=== PATIENT | male | born 2000 | race Two or more races ===

== ENCOUNTER 2021-01-22 14:16 | Emergency (ER) | payer SELFPAY ==
[~2021-01-22] VITALS: Ht 167.6 cm; Wt 56.8 kg
[2021-01-22] MEDS ORDERED: VANCOMYCIN PER PHARMACY MC ONE (15:45)
[2021-01-22 16:15] VITALS: BP 133/62
--- NOTE | 2021-01-22 16:18 | PHYS DOC ---
General Adult EDM: Chief Complaint: INSECT BITE HPI: HPI: Patient is a 20 year old male who presents with today states that he was bit by something but does not know what it was on his left side of his ribs and then today when he awoke it was painful and burning and itching. He now has redness cellulitis covering the whole side of his rib cage that goes to the abdomen and slightly towards his back area. States yesterday he had a headache but never took his temperature. He states that he felt feverish. He denies any past medical history. He states he takes no medication and has not taken any medication for this. States he has never had any kind of surgeries. He rates his pain a 10 out of 10. He is [place]-speaking but his friend is in the room interpreting for him. Review of Systems: Review of Systems: Constitutional: + fever or chills. [] Eyes: Denies change in visual acuity. [] HENT: Denies nasal congestion or sore throat. [] Respiratory: Denies cough or shortness of breath. [] Cardiovascular: Denies chest pain or edema. [] GI: Denies abdominal pain, nausea, vomiting, bloody stools or diarrhea. [] : Denies dysuria. [] Musculoskeletal: Denies back pain or joint pain. + Left side pain [] Integument: Denies rash. + Insect bite [] Neurologic: Denies headache, focal weakness or sensory changes. [] Endocrine: Denies polyuria or polydipsia. [] Lymphatic: Denies swollen glands. [] Psychiatric: Denies depression or anxiety. [] Heart Score: C/O Chest Pain: No Risk Factors: Risk Factors: DM, Current or recent (<one month) smoker, HTN, HLP, family history of CAD, obesity. Risk Scores: Score 0 - 3: 2.5% MACE over next 6 weeks - Discharge Home Score 4 - 6: 20.3% MACE over next 6 weeks - Admit for Clinical Observation Score 7 - 10: 72.7% MACE over next 6 weeks - Early Invasive Strategies Current Medications: Current Medications Medications (Trade) Dose Ordered Sig/Donnie Start Time Stop Time Status Last Admin Dose Admin Ketorolac Tromethamine (Toradol 30mg Vial) 30 mg 1X ONCE 01/22/21 15:45 01/22/21 15:46 UNV Sodium Chloride 1,000 ml @ 1,000 mls/hr Q1H 01/22/21 15:45 01/22/21 16:44 UNV Vancomycin HCl (Vanco Per Pharmacy) 1 each 1X ONCE 01/22/21 15:45 01/22/21 15:46 UNV Physical Exam: PE: Constitutional: Well developed, well nourished, no acute distress, non-toxic appearance. [] HENT: Normocephalic, atraumatic, bilateral external ears normal, oropharynx moist, no oral exudates, nose normal. [] Eyes: PERRLA, EOMI, conjunctiva normal, no discharge. [] Neck: Normal range of motion, no tenderness, supple, no stridor. [] Cardiovascular:Heart rate regular rhythm, no murmur [] Lungs & Thorax: Bilateral breath sounds clear to auscultation [] Abdomen: Bowel sounds normal, soft, no tenderness, no masses, no pulsatile masses. [] Skin: Warm, dry, left side erythema, no rash. [] Back: No tenderness, no CVA tenderness. [] Extremities: No tenderness, no cyanosis, no clubbing, ROM intact, no edema. [] Neurologic: Alert and oriented X 3, normal motor function, normal sensory function, no focal deficits noted. [] Psychologic: Affect normal, judgement normal, mood normal. [] EKG: EKG: [] Radiology/Procedures: Radiology/Procedures: [] Course & Med Decision Making: Course & Med Decision Making Pertinent Labs and Imaging studies reviewed. (See chart for details) See HPI. Alert and oriented x4. Ambulatory with steady gait. Speaks in full c lear sentences. Patient is given IV vancomycin in the ED. He is afebrile. There is no drainable abscess. The looks to be a bug bite to the left rib cage side and there is associated redness and warmth that extends down his whole left side. No tenderness with palpation. Patient denies abdominal pain, nausea, vomiting, diarrhea, body aches, weakness. Blood work is unremarkable. Lactic acid is normal. He is nonseptic appearing. No signs of sepsis. Patient is given a liter of normal saline and IV van comycin. He will be discharged home on p.o. medication. He is to follow-up and 48 hours. Patient got 250ml of the Vancomycin before it was stopped due to the patient breaking out in red blotches head to toe and ithy. No angioedema or soa. I have ordered IV Benadryl, Pepcid and Solu-Medrol. [] Marion Disclaimer: Marion Disclaimer: This electronic medical record was generated, in whole or in part, using a voice recognition dictation system. Departure Departure Impression: Primary Impression: Cellulitis Qualified Codes: L03.319 - Cellulitis of trunk, unspecified Additional Impression: Vancomycin adverse reaction Qualified Codes: T36.8X5A - Adverse effect of other systemic antibiotics, initial encounter Disposition: HOME / SELF CARE / HOMELESS Condition: STABLE Referrals: NO PCP (PCP) Patient Instructions: Cellulitis, Drug Allergy Additional Instructions: Follow-up with primary care provider or return here in 48 hours for a follow-up. Take medication as prescribed and with food. Take ibuprofen or Tylenol for any kind of pain or fever. Scripts Methylprednisolone (MEDROL) 4 Mg Tab.ds.pk 1 PKG PO UD, #1 PKG Prov: JOLENE MENENDEZ APRN 01/22/21 Diphenhydramine Hcl (BENADRYL) 25 Mg Capsule 1 CAP PO BID for 5 Days, #10 CAP 0 Refills Prov: JOLENE MENENDEZ APRN 01/22/21 Clindamycin Hcl (CLINDAMYCIN HCL) 300 Mg Capsule 1 CAP PO TID for 10 Days, #30 CAP Prov: JOLENE MENENDEZ APRN 01/22/21 JOLENE MENENDEZ APRN Jan 22, 2021 16:17
[2021-01-22 16:33] LABS: BASO % 0 % (0-3); EOS # 0.3 x10^3/uL (0.0-0.7); EOS % 5 % (0-3); HEMOGLOBIN 16.1 g/dL (13.0-17.5); LYMPH # 0.8 x10^3/uL (1.0-4.8); LYMPH % 13 % (24-48); MEAN CORPUSCULAR HEMOGLOBIN 33 pg (25-35); MEAN CORPUSCULAR HGB CONC 34 g/dL (31-37); MEAN CORPUSCULAR VOLUME 95 fL (79-100); MONO # 0.6 x10^3/uL (0.0-1.1); MONO % 9 % (0-9); NEUT # 4.7 x10^3/uL (1.8-7.7); NEUT % 73 % (31-73); PLATELET COUNT 156 x10^3/uL (140-400); RED BLOOD COUNT 4.93 x10^6/uL (4.30-5.70); RED CELL DISTRIBUTION WIDTH 13.2 % (11.5-14.5); WHITE BLOOD COUNT 6.4 x10^3/uL (4.0-11.0)
[2021-01-22 16:41] LABS: CALCIUM 8.9 mg/dL (8.5-10.1); CREATININE 1.2 mg/dL (0.7-1.3); GFR 77.2; POTASSIUM 3.9 mmol/L (3.5-5.1)
[2021-01-22] MEDS ORDERED: KETOROLAC 30 MG/ML VIAL. IVP ONE (16:45)
[2021-01-22] MEDS ORDERED: IV NORMAL SALINE 1000ML BAG 1,000 ML IV SCH (16:45)
[2021-01-22 16:47] LABS: ALBUMIN 3.8 g/dL (3.4-5.0); ALBUMIN/GLOBULIN RATIO 1.1 (1.0-1.7); TOTAL BILIRUBIN 3.6 mg/dL (0.2-1.0); TOTAL PROTEIN 7.4 g/dL (6.4-8.2)
[2021-01-22] MEDS ORDERED: CLIN300C9 PO (16:59)
[2021-01-22] MEDS ORDERED: VANCOMYCIN 1.5 GM in IV NORMAL SALINE 500ML BAG 500 ML IV ONE (17:00)
[2021-01-22] MEDS ORDERED: FAMOTIDINE 20 MG/2 ML VIAL IVP ONE (18:00)
[2021-01-22] MEDS ORDERED: methylPREDNISolone SOD SUCC PF 125 MG/2 ML VIAL. IV ONE (18:00)
[2021-01-22] MEDS ORDERED: diphenhydrAMINE 50 MG/ML VIAL IVP ONE (18:00)
[2021-01-22] MEDS ORDERED: METH4TAB2 PO (18:01)
[2021-01-22] MEDS ORDERED: DIPH25CA58 PO (18:01)
== END 2021-01-22 19:30 | disposition home or self-care (01) ==
LOC: ER 14:16
DX: L03.319 Cellulitis of trunk, unspecified (principal); T36.8X5A Adverse effect of other systemic antibiotics, initial encounter; R51.9 Headache, unspecified; R07.81 Pleurodynia; R50.9 Fever, unspecified; Y92.89 Other specified places as the place of occurrence of the external cause
CPT/HCPCS: 36415; 80053; 83605; 85025; 87040; 96365; 96375; 99284; J1200; J1885; J2930; J3370; J3490; J7030; J7040

== ENCOUNTER 2021-10-16 09:54 | Emergency (ER) | payer SELFPAY ==
[~2021-10-16] VITALS: Ht 162.6 cm; Wt 55.8 kg
[~2021-10-16 09:54] MED LIST: CLIN-94 PO; DIPH25CA58 PO; METH4TAB2 PO
[2021-10-16 10:05] VITALS: BP 127/69
[2021-10-16] MEDS ORDERED: IBUPROFEN 200 MG TABLET. PO ONE (10:30)
--- NOTE | 2021-10-16 10:53 | PHYS DOC ---
Past Medical History Past Medical History: No Pertinent History Past Surgical History: No Surgical History Smoking Status: Current Some Day Smoker Additional Information: 3 cigarettes almost daily Alcohol Use: None Drug Use: None General Adult EDM: Chief Complaint: SORE THROAT HPI: HPI: Patient is a 21 year old male who presents with 3-day history of sore throat, nasal congestion, headache, cough and subjective fever. Patient rates his headache 10/10 and his sore throat as mild pain. Patient was vaccinated against COVID-19 but has not received a flu shot this season. He has taken Tylenol since symptom onset without significant relief. Patient denies chills, g eneralized fatigue, sputum production, shortness of breath. Review of Systems: Review of Systems: Constitutional: See HPI Eyes: Denies change in visual acuity, visual field deficits or discharge HENT: See HPI Respiratory: See HPI Cardiovascular: Denies chest pain, palpitations or edema GI: Denies abdominal pain, nausea, vomiting, bloody stools or diarrhea : Denies dysuria or hematuria Musculoskeletal: Denies back pain or joint pain Integument: Denies rash or other skin lesion Neurologic: Denies focal weakness or sensory changes Heart Score: C/O Chest Pain: No Current Medications: Current Medications Medications (Trade) Dose Ordered Sig/Donnie Start Time Stop Time Status Last Admin Dose Admin Guaifenesin (Mucinex) 600 mg 1X ONCE 10/16/21 10:30 10/16/21 10:31 DC 10/16/21 10:41 600 MG Ibuprofen (Motrin) 600 mg 1X ONCE 10/16/21 10:30 10/16/21 10:31 DC 10/16/21 10:40 600 MG Allergies: Allergies: Allergies Coded Allergies Type Severity Reaction Last Updated Verified No Known Drug Allergies 10/16/21 No Physical Exam: PE: Constitutional: Well developed, well nourished, no acute distress, non-toxic appearance. HENT: Normocephalic, atraumatic, bilateral external ears normal, oropharynx moist, no oral exudates, nose normal. Eyes: EOMI, conjunctiva normal, no discharge. Neck: Normal range of motion, no tenderness, supple, no stridor. Skin: Warm, dry, no erythema, no rash. Extremities: No cyanosis, no clubbing, ROM intact, no edema. Neurologic: Alert and oriented x4, normal motor function, normal sensory function, steady and symmetrical upright gait, no focal deficits noted. Current Patient Data: Labs: Laboratory Tests Test 10/16/21 10:22 Influenza Type A Antigen Positive (NEGATIVE) Influenza Type B Antigen Negative (NEGATIVE) SARS-CoV-2 Antigen (Rapid) Negative (NEGATIVE) Vital Signs: Vital Signs Date Time Temp Pulse Resp B/P (MAP) Pulse Ox O2 Delivery O2 Flow Rate FiO2 10/16/21 10:05 98.7 96 18 127/69 (88) 96 Room Air 98.7 Course & Med Decision Making: Course & Med Decision Making Pertinent Labs and Imaging studies reviewed. (See chart for details) Dragon Disclaimer: DragCasualing Disclaimer: This electronic medical record was generated, in whole or in part, using a voice recognition dictation system. Departure Departure Impression: Primary Impression: Influenza A Disposition: 01 HOME / SELF CARE / HOMELESS Condition: STABLE Referrals: NO PCP (PCP) Patient Instructions: Influenza, Adult, [id number] Additional Instructions: Siga las siguientes medidas de tratamiento de apoyo: - Humidificador de vapor fro con agua corriente al lado de la cama mientras duerme - Mucinex (guaifenesina) segn instrucciones de la caja - Tessalon perles (benzonatato) para la tos, especialmente por la noche antes de acostarse - Alternar ibuprofeno y paracetamol cada cuatro horas para tomy corporales/fiebre/dolor de jeremy INSTRUCCIONES GENERALES DE MARIA ESTHER DEL DEPARTAMENTO DE EMERGENCIA Keith por venir jasiel al Departamento de Emergencias (ED) de [facility] y confiarnos cordero atencin. Confiamos en que haya tenido mildred experiencia positiva en nuestro Departamento de Emergencias. Si desea hablar con la gerencia del departamento, puede llamar al director al . TREMAYNE INSTRUCCIONES DE SEGUIMIENTO SON LAS SIGUIENTES: 1. Idalmis un seguimiento con cordero mdico de atencin primaria. Si no tiene un mdico de cabecera, solicite mildred lista de recursos de mdicos o clnicas que puedan ayudarlo con la atencin de seguimiento. 2. El proveedor de emergencia xiao interpretado tremayne estudios de imgenes, si se ordenaron. El especialista en imgenes de radiologa tambin los ozzy. Si hay un cambio en los hallazgos, se le notificar en 48 horas cuando sea posible. 3. Si se xiao realizado mildred prueba de laboratorio o un cultivo, se revisarn tremayne resultados y se le notificar si necesita un cambio en el tratamiento. 4. Siga las instrucciones verbalizadas y consulte las copias impresas si es necesario. INSTRUCCIONES E INFORMACIN ADICIONALES: 1. Cordero atencin hoy xiao sido supervisada por un mdico especialmente capacitado en atencin de emergencia. Muchos problemas requieren ms de mildred evaluacin para un diagnstico y tratamiento completos. Le recomendamos que programe cordero lisa de seguimiento segn lo recomendado para garantizar el tratamiento completo de cordero enfermedad o lesin. Si no puede obtener atencin de seguimiento y contina teniendo un problema, o si cordero condicin empeora, le recomendamos que regrese al servicio de urgencias. 2. No podemos determinar de manera cao cordero condicin por telfono ni podemos kerline consejos mdicos slidos por telfono. Por estas razones de seguridad, si llama para pedir consejo mdico, le pediremos que vaya al servicio de urgencias para mildred evaluacin adicional. 3. Si tiene alguna pregunta sobre estas instrucciones de maria esther, llame al ED al . INFORMACIN DE SEGURIDAD: En inters de la seguridad, el bienestar y la prevencin de lesiones; le recomendamos que use cordero cinturn de seguridad, si fuma; bastante fumador, y alentamos a la fawn a usar un adam protector para andar en bicicleta y otros eventos deportivos que presenten un mayor riesgo de lesiones en la jeremy. SI TREMAYNE SNTOMAS EMPEORAN O SE DESARROLLAN NUEVOS SNTOMAS, O SI TIENE PREOCUPACIONES SOBRE CORDERO CONDICIN; O SI CORDERO CONDICIN EMPEORA MIENTRAS ESPERA CORDERO LISA DE SEGUIMIENTO; PNGASE EN CONTACTO CON CORDERO MDICO DE ATENCIN PRIMARIA, EL MDICO CUYO NOMBRE Y NMERO LE DIERON, O REGRESE AL ED INMEDIATAMENTE. Scripts Guaifenesin (GUAIFENESIN) 400 Mg Tablet 1 TAB PO TID for cough, #20 TAB 0 Refills Prov: SHELBY ELLIS 10/16/21 Benzonatate (BENZONATATE) 100 Mg Capsule 1-2 CAP PO HS, #20 CAP Prov: SHELBY ELLIS 10/16/21 SHELBY ELLIS Oct 16, 2021 10:53
[2021-10-16 10:56] LABS: INFLUENZA B PATIENT NEGATIVE (NEGATIVE)
[2021-10-16 11:05] LABS: INFLUENZA A PATIENT POSITIVE (NEGATIVE)
[2021-10-16] MEDS ORDERED: GUAI400T78 PO (11:21)
[2021-10-16] MEDS ORDERED: BENZ-8 PO (11:21)
== END 2021-10-16 11:32 | disposition home or self-care (01) ==
LOC: ER 09:54
DX: J10.1 Influenza due to other identified influenza virus with other respiratory manifestations (principal); Z20.822 Contact with and (suspected) exposure to COVID-19; F17.210 Nicotine dependence, cigarettes, uncomplicated
CPT/HCPCS: 87428; 99283; C9803; U0003